=== PATIENT | female | born 1980 | race Caucasian/White ===

== ENCOUNTER 2016-05-01 07:46 | Day surgery (SDC) | payer OTHER ==
[~2016-05-01] VITALS: Ht 152.4 cm; Wt 84.4 kg
[2016-05-01] MEDS ORDERED: BUPIVACAINE-MPF/EPI 0.25% 30 ML VIAL INJ ONE (08:59)
[2016-05-01] MEDS ORDERED: MIDAZOLAM 2 MG/2 ML VIAL ONE (10:07)
[2016-05-01] MEDS ORDERED: MEPERIDINE 50 MG/ML SYR ONE (10:07)
[2016-05-01] MEDS ORDERED: fentaNYL 0.05 MG/ML VIAL ONE (10:07)
[2016-05-01] MEDS ORDERED: ONDANSETRON 4 MG/2 ML VIAL ONE (10:20)
[2016-05-01] MEDS ORDERED: SUCCINYLCHOLINE CHLORIDE 200 MG/10 ML VIAL IVP ONE (10:20)
[2016-05-01] MEDS ORDERED: ROCURONIUM 50 MG/5 ML VIAL IV ONE (10:20)
[2016-05-01] MEDS ORDERED: SEVOFLURANE 250 ML BTL INH ONE (10:20)
[2016-05-01] MEDS ORDERED: PROPOFOL 200 MG/20 ML VIAL IV ONE (10:20)
[2016-05-01] MEDS ORDERED: LACTATED RINGERS 1,000 ML IV SCH (11:13)
[2016-05-01] MEDS ORDERED: ONDANSETRON 4 MG/2 ML VIAL IVP PRN (11:15)
[2016-05-01] MEDS ORDERED: MEPERIDINE 25 MG/ML SYR IVP PRN (11:15)
[2016-05-01] MEDS ORDERED: diphenhydrAMINE 50 MG/ML VIAL IVP PRN (11:15)
[2016-05-01] MEDS ORDERED: NACL 0.9% 1,000 ML IV SCH (11:31)
[2016-05-01] MEDS ORDERED: HYDROcodone/APAP 5/325 MG 1 TAB TAB PO PRN (11:35)
[2016-05-01] MEDS ORDERED: ACETAMINOPHEN 325 MG TAB PO PRN (11:35)
[2016-05-01] MEDS ORDERED: MORPHINE SULFATE 2 MG/ML SYR IVP PRN (11:35)
[2016-05-01] MEDS ORDERED: MORPHINE SULFATE 4 MG/ML SYR IV PRN (11:35)
[2016-05-01] MEDS ORDERED: HYDROmorphone 1 MG/ML AMP IVP PRN (11:35)
[2016-05-01] MEDS ORDERED: ONDANSETRON 4 MG/2 ML VIAL IV PRN (11:35)
[2016-05-01] MEDS: HYDROmorphone 1 MG/ML AMP IVP PRN ×4 (11:40→12:30)
[2016-05-01] MEDS ORDERED: HYDROmorphone PFS 2 MG/ML SYR ONE ×2 (11:44→12:24)
== END 2016-05-01 14:50 | disposition home or self-care (01) ==
LOC: MDS 07:46 → MMU 07:47 → MDS 14:50
PROVIDERS: ATTEND Surgery
DX: K80.10 Calculus of gallbladder with chronic cholecystitis without obstruction (principal); E66.9 Obesity, unspecified; Z68.36 Body mass index [BMI] 36.0-36.9, adult
CPT/HCPCS: 36415; 47562; 71010; 82374; 86886; 86900; 86901; J0330; J0690; J1170; J2250; J2405; J2704; J3010; J3490; J7030; J7060; J7120